=== PATIENT | female | born 1975 | race Two or more races ===

== ENCOUNTER 2016-05-31 18:18 | Emergency (ER) | payer MEDICAID ==
[~2016-05-31] VITALS: Ht 152.4 cm; Wt 59.0 kg
[2016-05-31 18:46] VITALS: BP 104/71
== END 2016-05-31 21:25 | disposition home or self-care (01) ==
LOC: ER 18:18
DX: M94.0 Chondrocostal junction syndrome [Tietze] (principal); J45.909 Unspecified asthma, uncomplicated
CPT/HCPCS: 71020; 81002

== ENCOUNTER 2018-01-05 10:38 | Inpatient (IN) | payer MEDICAID ==
[~2018-01-05] VITALS: Ht 167.6 cm; Wt 69.7 kg
[2018-01-05 11:32] LABS: Basophils # (auto) 0 uL; Basophils % (auto) 0.3 % (0.0-2.0); Eosinophils # (auto) 0 uL; Eosinophils % (auto) 0.1 % (0.0-7.0); Hematocrit 43.6 % (36.0-46.0); Lymphocytes # (auto) 1.6 uL; Lymphocytes % (auto) 11.3 % (10.0-50.0); Mean Corpuscular Hemoglobin 30.1 pg (28.0-32.0); Mean Corpuscular Hgb Conc. 32.1 g/dL (32.0-36.0); Mean Corpuscular Volume 93.8 fL (80.0-100.0); Monocytes # (auto) 0.6 uL; Monocytes % (auto) 4.2 % (0.0-12.0); Neutrophils # (auto) 11.9 uL; Neutrophils % (auto) 84.1 % (37.0-80.0); Platelet Count (auto) 301 10^3/uL (140-450); Red Blood Cells 4.65 10^6/uL (4.0-5.20); Red Cell Distribution Width 14.3 % (11.8-14.3); White Blood Cell 14.2 10^3/uL (4.4-10.8)
[2018-01-05 11:34] LABS: Urine Amorphous Crystal FEW /hpf (None Seen); Urine Bacteria NONE SEEN /hpf (None Seen); Urine Blood 1+ /uL (Negative); Urine Specific Gravity 1.014 (1.001-1.035); Urine WBC 1 /hpf (0 - 5)
[2018-01-05 11:49] LABS: Albumin 4.3 g/dL (3.4-5.0); Anion Gap 7 (5-15); Blood Alcohol < 3.0 mg/dL (0-5); Blood Urea Nitrogen 13 mg/dL (7-18); Calcium 8.9 mg/dL (8.5-10.1); Carbon Dioxide 21 mmol/L (21-32); Chloride 108 mmol/L (98-107); Glucose 109 mg/dL (74-106); Potassium 3.7 mmol/L (3.5-5.1); Sodium 136 mmol/L (136-145)
[2018-01-05 11:51] LABS: Alcohol, Urine < 3.0 mg/dL (0-5); Amphetamine Screen, Urine NEGATIVE (NEGATIVE); Barbiturate Scree,Urine NEGATIVE (NEGATIVE); Benzodiazephine Screen, Urine NEGATIVE (NEGATIVE); Cannabinoid Screen, Urine NEGATIVE (NEGATIVE); Cocaine Screen, Urine NEGATIVE (NEGATIVE); Opiate Scree,Urine NEGATIVE (NEGATIVE); Phencyclidine Screen, Urine NEGATIVE (NEGATIVE)
[2018-01-05] MEDS ORDERED: SODIUM CHLORIDE 0.9% 1,000 ML IVB ONE (11:53)
[2018-01-05 11:54] LABS: Alanine Aminotransferase 16 U/L (13-56); Alkaline Phosphatase 101 U/L (45-117); Aspartate Aminotransferase 15 U/L (15-37); BUN/Creatinine Ratio 18.8; Bilirubin, Total 0.4 mg/dL (0.2-1.0); GFR African American 121 mL/min; GFR Non-African American 100 mL/min; Total Protein 8.6 g/dL (6.4-8.2)
[2018-01-05] MEDS ORDERED: cefTRIAXone 1GM/50ML D5W 50 ML IV ONE (15:45)
[2018-01-05] MEDS ORDERED: MORPHINE SULFATE 4 MG/ML SYR/VIAL IV PRN (15:45)
[2018-01-05] MEDS ORDERED: NITROGLYCERIN 0.4 MG SL TAB SL PRN (15:45)
[2018-01-05] MEDS: SODIUM CHLORIDE 0.9% 1,000 ML IV SCH (16:12)
[2018-01-05 18:29] LABS: Salicylate < 1.7 mg/dL (2.8-20.0)
[2018-01-05 18:30] LABS: Acetaminophen < 2.0 ug/mL (10-30)
[2018-01-06] MEDS: SODIUM CHLORIDE 0.9% 1,000 ML IV SCH ×2 (01:54→11:45)
[2018-01-06] MEDS ORDERED: cefTRIAXone 1GM/50ML D5W 50 ML IV SCH (09:00)
[2018-01-06 09:13] LABS: Basophils # (auto) 0.1 uL; Basophils % (auto) 0.6 % (0.0-2.0); Eosinophils # (auto) 0.1 uL; Eosinophils % (auto) 0.5 % (0.0-7.0); Hematocrit 41.2 % (36.0-46.0); Hemoglobin 13.3 g/dL (12.2-16.2); Mean Corpuscular Hemoglobin 30.1 pg (28.0-32.0); Mean Corpuscular Hgb Conc. 32.1 g/dL (32.0-36.0); Mean Corpuscular Volume 93.7 fL (80.0-100.0); Monocytes # (auto) 0.8 uL; Monocytes % (auto) 6.2 % (0.0-12.0); Neutrophils # (auto) 9.5 uL; Neutrophils % (auto) 70.7 % (37.0-80.0); Platelet Count (auto) 297 10^3/uL (140-450); Red Cell Distribution Width 14.2 % (11.8-14.3); White Blood Cell 13.5 10^3/uL (4.4-10.8)
[2018-01-06 09:17] VITALS: BP 104/65
[2018-01-06 09:32] LABS: Albumin 3.8 g/dL (3.4-5.0); BUN/Creatinine Ratio 17.1; Calcium 8.6 mg/dL (8.5-10.1)
[2018-01-06 09:36] LABS: Bilirubin, Total 0.5 mg/dL (0.2-1.0); Total Protein 7.9 g/dL (6.4-8.2)
[2018-01-06 13:00] VITALS: BP 118/76
[2018-01-06] MEDS: cefTRIAXone 1GM/50ML D5W 50 ML IV SCH (16:00)
[2018-01-06 17:38] VITALS: BP 116/75
[2018-01-06] MEDS ORDERED: LORazepam 2MG/ML-1ML VIAL IV PRN (18:45)
[2018-01-06 22:00] VITALS: BP 107/69
[2018-01-07] MEDS: SODIUM CHLORIDE 0.9% 1,000 ML IV SCH ×4 (04:01→23:35)
[2018-01-07 05:30] VITALS: BP 97/56
[2018-01-07 06:41] LABS: Basophils # (auto) 0.1 uL; Basophils % (auto) 0.7 % (0.0-2.0); Eosinophils # (auto) 0.1 uL; Eosinophils % (auto) 1.5 % (0.0-7.0); Hemoglobin 13.3 g/dL (12.2-16.2); Lymphocytes # (auto) 2.9 uL; Lymphocytes % (auto) 37.7 % (10.0-50.0); Mean Corpuscular Hemoglobin 30.9 pg (28.0-32.0); Mean Corpuscular Hgb Conc. 32.5 g/dL (32.0-36.0); Mean Corpuscular Volume 95.2 fL (80.0-100.0); Monocytes # (auto) 0.6 uL; Monocytes % (auto) 8.1 % (0.0-12.0); Neutrophils # (auto) 3.9 uL; Nucleated Red Blood Cells % 0.1 %; Platelet Count (auto) 279 10^3/uL (140-450); Red Blood Cells 4.31 10^6/uL (4.0-5.20); Red Cell Distribution Width 14.3 % (11.8-14.3); White Blood Cell 7.6 10^3/uL (4.4-10.8)
[2018-01-07 06:56] LABS: Albumin 3.4 g/dL (3.4-5.0); Calcium 8.3 mg/dL (8.5-10.1)
[2018-01-07 07:00] LABS: BUN/Creatinine Ratio 24.6; Bilirubin, Total 0.4 mg/dL (0.2-1.0); Total Protein 7.3 g/dL (6.4-8.2)
[2018-01-07 09:00] VITALS: BP 95/54
[2018-01-07] MEDS ORDERED: POTASSIUM CHL 20 Meq TABLET PO ONE (10:15)
[2018-01-07] MEDS ORDERED: TOPI100T68 PO (11:24)
[2018-01-07] MEDS ORDERED: GUAI600T23 (11:24)
[2018-01-07] MEDS ORDERED: CHOL500023 (11:24)
[2018-01-07] MEDS ORDERED: IPRIH (11:24)
[2018-01-07] MEDS ORDERED: ARIP1TAB7 PO (11:24)
[2018-01-07] MEDS ORDERED: TOPI200T37 PO (11:24)
[2018-01-07] MEDS ORDERED: CALC667C PO (11:24)
[2018-01-07] MEDS ORDERED: GABA300C10 (11:24)
[2018-01-07] MEDS ORDERED: PANT40T (11:24)
[2018-01-07 13:00] VITALS: BP 105/65
[2018-01-07] MEDS: cefTRIAXone 1GM/50ML D5W 50 ML IV SCH (16:57)
[2018-01-07 17:00] VITALS: BP 110/60
[2018-01-07 22:00] VITALS: BP 109/67
[2018-01-08 05:00] VITALS: BP 115/74
[2018-01-08 05:44] LABS: Basophils # (auto) 0 uL; Basophils % (auto) 0.6 % (0.0-2.0); Eosinophils # (auto) 0.1 uL; Eosinophils % (auto) 1.9 % (0.0-7.0); Hematocrit 37.5 % (36.0-46.0); Hemoglobin 12.3 g/dL (12.2-16.2); Lymphocytes # (auto) 3.1 uL; Lymphocytes % (auto) 41.4 % (10.0-50.0); Mean Corpuscular Hemoglobin 30.5 pg (28.0-32.0); Mean Corpuscular Hgb Conc. 32.9 g/dL (32.0-36.0); Mean Corpuscular Volume 92.6 fL (80.0-100.0); Monocytes # (auto) 0.6 uL; Neutrophils # (auto) 3.6 uL; Neutrophils % (auto) 48.1 % (37.0-80.0); Nucleated Red Blood Cells % 0.1 %; Platelet Count (auto) 274 10^3/uL (140-450); Red Blood Cells 4.05 10^6/uL (4.0-5.20); Red Cell Distribution Width 14.3 % (11.8-14.3); White Blood Cell 7.4 10^3/uL (4.4-10.8)
[2018-01-08 05:59] LABS: Calcium 8.2 mg/dL (8.5-10.1); Potassium 3.5 mmol/L (3.5-5.1)
[2018-01-08 09:00] VITALS: BP 104/64
[2018-01-08] MEDS: SODIUM CHLORIDE 0.9% 1,000 ML IV SCH (15:57)
[2018-01-08] MEDS: cefTRIAXone 1GM/50ML D5W 50 ML IV SCH (15:58)
[2018-01-08 22:57] VITALS: BP 99/68
[2018-01-09] MEDS: SODIUM CHLORIDE 0.9% 1,000 ML IV SCH (02:31)
[2018-01-09 05:40] VITALS: BP 95/60
[2018-01-09 09:00] VITALS: BP 96/56
[2018-01-09] MEDS ORDERED: MORPHINE SULFATE 10 MG/ML INJ 1ML SDV IV PRN (09:00)
[2018-01-09] MEDS ORDERED: SODIUM CHLORIDE 0.9% 1,000 ML IV SCH (09:45)
[2018-01-09 12:38] VITALS: BP 100/64
[2018-01-09] MEDS: CIPROFLOXACIN HYDROCHLORIDE 250 MG TAB PO SCH ×2 (16:35→21:29)
[2018-01-09 16:38] LABS: Albumin 3.7 g/dL (3.4-5.0); Calcium 8.9 mg/dL (8.5-10.1); Potassium 4.6 mmol/L (3.5-5.1)
[2018-01-09 16:40] LABS: BUN/Creatinine Ratio 15.6; Bilirubin, Total 0.3 mg/dL (0.2-1.0); Total Protein 7.2 g/dL (6.4-8.2)
[2018-01-09 17:00] VITALS: BP 106/55
[2018-01-09 21:45] VITALS: BP 98/58
[2018-01-10 04:59] VITALS: BP 107/59
[2018-01-10 05:00] VITALS: BP 97/67
[2018-01-10 09:00] VITALS: BP 97/52
[2018-01-10] MEDS: CIPROFLOXACIN HYDROCHLORIDE 250 MG TAB PO SCH (10:40)
[2018-01-10 11:42] LABS: Albumin 3.3 g/dL (3.4-5.0); Calcium 8.5 mg/dL (8.5-10.1); Potassium 3.5 mmol/L (3.5-5.1)
[2018-01-10 11:46] LABS: BUN/Creatinine Ratio 20.4; Bilirubin, Total 0.1 mg/dL (0.2-1.0); Total Protein 6.8 g/dL (6.4-8.2)
[2018-01-10 13:00] VITALS: BP 107/65
[2018-01-10] MEDS ORDERED: TOPIRAMATE 100 MG TAB PO SCH (22:00)
== END 2018-01-10 16:06 | disposition left against medical advice (07) | DRG 812 ==
LOC: EDBD 10:38 → ER 10:44 → TELE 15:45 → TELE-CENTR 01-06 07:38 → CENTRAL 01-06 18:00
PROVIDERS: ADMIT Internal Medicine; ATTEND Internal Medicine
DX: T42.6X1A Poisoning by other antiepileptic and sedative-hypnotic drugs, accidental (unintentional), initial encounter (principal); A41.51 Sepsis due to Escherichia coli [E. coli]; G92 Toxic encephalopathy; T45.0X2A Poisoning by antiallergic and antiemetic drugs, intentional self-harm, initial encounter; E87.8 Other disorders of electrolyte and fluid balance, not elsewhere classified; F32.9 Major depressive disorder, single episode, unspecified; T14.91XA Suicide attempt, initial encounter; Y92.810 Car as the place of occurrence of the external cause; N39.0 Urinary tract infection, site not specified; T42.6X2A Poisoning by other antiepileptic and sedative-hypnotic drugs, intentional self-harm, initial encounter; G40.909 Epilepsy, unspecified, not intractable, without status epilepticus; G43.909 Migraine, unspecified, not intractable, without status migrainosus; F29 Unspecified psychosis not due to a substance or known physiological condition; J45.909 Unspecified asthma, uncomplicated; G89.29 Other chronic pain; M54.2 Cervicalgia; M54.5 Low back pain; Z53.21 Procedure and treatment not carried out due to patient leaving prior to being seen by health care provider; X83.8XXA Intentional self-harm by other specified means, initial encounter; Y93.89 Activity, other specified; Y99.8 Other external cause status
CPT/HCPCS: 36415; 51702; 70450; 70551; 71046; 80048; 80053; 80201; 80307; 80320; 80329; 81001; 82962; 83735; 84443; 84484; 84702; 85025; 87086; 87088; 87186; 93005; 94761; 96361; 96365; G0378; J0696

== ENCOUNTER → 2021-12-17 | Emergency (ER) | payer MEDICAID ==
[~2021-12-17] VITALS: Ht 152.4 cm; Wt 73.0 kg
[~2021-12-17] MED LIST: ACETAMINOPHEN 325 MG TAB PO ONE; ARIP1TAB7 PO; AZIT250T9 PO; AZITHROMYCIN 250 MG TAB PO ONE; CALC667C PO; CHOL500023; DexAMETHasone SOD PHOS 10MG/1ML VIAL INJ IM ONE; GABA300C10; GUAI600T23; IPRIH; PANT40T; TOPI100T68 PO; TOPI200T37 PO
[2021-12-17 22:51] VITALS: BP 112/79
== END | disposition home or self-care (01) ==
LOC: ER 22:02
DX: J06.9 Acute upper respiratory infection, unspecified (principal); Z20.822 Contact with and (suspected) exposure to COVID-19
CPT/HCPCS: 36415; 71045; 87426; 87804; 96372; 99284; J1100

== ENCOUNTER 2022-09-03 21:47 | Emergency (ER) | payer MEDICAID ==
[~2022-09-03] VITALS: Ht 152.4 cm; Wt 76.8 kg
[~2022-09-03 21:47] MED LIST changes: -ACETAMINOPHEN 325 MG TAB PO ONE; +AZIT-43 PO; -AZIT250T9 PO; -AZITHROMYCIN 250 MG TAB PO ONE; -DexAMETHasone SOD PHOS 10MG/1ML VIAL INJ IM ONE; +GABA-1250; -GABA300C10
[2022-09-03 22:36] VITALS: BP 132/63; PULSE 71; RESP 16; O2SAT 97
[2022-09-03 23:13] LABS: Basophils # (auto) 0 10 ^3/uL (0-0.2); Basophils % (auto) 0.5 % (0.0-2.0); Eosinophils # (auto) 0.3 10 ^3/uL (0-0.8); Eosinophils % (auto) 3.2 % (0.0-7.0); Hematocrit 40.3 % (36.0-46.0); Hemoglobin 13.4 g/dL (12.2-16.2); Lymphocytes # (auto) 3.4 10 ^3/uL (0.4-5.4); Lymphocytes % (auto) 35.4 % (10.0-50.0); Mean Corpuscular Hemoglobin 30.8 pg (28.0-32.0); Mean Corpuscular Hgb Conc. 33.2 g/dL (32.0-36.0); Mean Corpuscular Volume 92.9 fL (80.0-100.0); Monocytes # (auto) 1.1 10 ^3/uL (0-1.3); Monocytes % (auto) 11.1 % (0.0-12.0); Neutrophils # (auto) 4.7 10 ^3/uL (1.6-8.6); Neutrophils % (auto) 49.8 % (37.0-80.0); Nucleated Red Blood Cells % 0.1 %; Red Blood Cells 4.34 10^6/uL (4.0-5.20); Red Cell Distribution Width 14.1 % (11.8-14.3); White Blood Cell 9.5 10^3/uL (4.4-10.8)
[2022-09-03 23:27] LABS: Albumin 3.7 g/dL (3.4-5.0); BUN/Creatinine Ratio 12.7 (10.0-20.0); Calcium 9.1 mg/dL (8.5-10.1); Potassium 3.7 mmol/L (3.5-5.1)
[2022-09-03 23:30] LABS: Bilirubin, Total 0.2 mg/dL (0.2-1.0); Total Protein 7.3 g/dL (6.4-8.2)
[2022-09-03 23:45] LABS: Urine Bacteria FEW /hpf (None Seen); Urine Blood Negative /uL (Negative); Urine Mucus FEW (None Seen); Urine Specific Gravity 1.036 (1.001-1.035); Urine WBC 1 /hpf (0 - 5)
== END 2022-09-04 04:02 | disposition left against medical advice (07) ==
LOC: ER 21:47
DX: R10.9 Unspecified abdominal pain (principal); R11.0 Nausea; R19.7 Diarrhea, unspecified; Z53.21 Procedure and treatment not carried out due to patient leaving prior to being seen by health care provider
CPT/HCPCS: 36415; 74176; 80053; 81001; 83690; 85025